=== PATIENT | female | born 1990 | race Caucasian/White ===

== ENCOUNTER → 2017-05-19 08:40 | Outpatient (CLI) | payer MEDICAID ==
[2014-02-03 05:59] VITALS: BMI 26.6
[~2017-05-19 08:40] MED LIST: IBUPROFEN600 MG PO; PERCOCET 5-3251 TAB PO
== END | disposition home or self-care (01) ==
LOC: D.RAD 08:30
DX: K22.8 Other specified diseases of esophagus (principal)

== ENCOUNTER 2017-06-21 13:16 | Emergency (ER) | payer MEDICAID ==
[2014-02-03 05:59] VITALS: BMI 26.6
== END 2017-06-21 16:02 | disposition home or self-care (01) ==
LOC: D.ER 13:16
DX: S16.1XXA Strain of muscle, fascia and tendon at neck level, initial encounter (principal); X58.XXXA Exposure to other specified factors, initial encounter; Y93.89 Activity, other specified; Y92.019 Unspecified place in single-family (private) house as the place of occurrence of the external cause; S29.012A Strain of muscle and tendon of back wall of thorax, initial encounter; M62.838 Other muscle spasm; F17.200 Nicotine dependence, unspecified, uncomplicated

== ENCOUNTER 2018-07-14 21:52 | Inpatient (IN) | payer MEDICAID ==
[~2018-07-14] VITALS: Ht 160 cm; Wt 69.9 kg
[2018-07-14] MEDS ORDERED: BUPRENORPHINE HC8 MG SL (23:53)
[2018-07-14 23:54] VITALS: BP 121/78; Ht 160 cm; Wt 69.9 kg
[2018-07-14 23:54] LABS: HEMATOCRIT 38.7 % (36.0-48.0); HEMOGLOBIN 13.3 g/dL (12-16); MCH 31.9 pg (26.0-34.0); MCHC 34.4 g/dL (31.0-37.0); MCV 92.8 fL (80.0-100.0); MEAN PLATELET VOLUME 11.8 fL (7.4-10.4); RBC 4.17 10x6/uL (4.00-5.40); RDW 12.6 % (11.5-14.5); WBC 9.7 10x3/uL (4.8-10.8)
--- NOTE | 2018-07-15 19:15 | NUR ---
REPORT GIVEN TO 7 P SHIFT.
[2018-07-15 19:36] VITALS: BP 117/68
--- NOTE | 2018-07-15 20:50 | NUR ---
PT READY TO VOID, FF, ML, 2/2, MOD BLEEDING WITH NO CLOTS, PERINEAL SWELLING, PT INST ON AND VERBALIZES UNDERSTANDING OF WALKING TO BR, PT UP TO SIDE OF BED, PT DENIES ANY DIZZYNESS OR LIGHTHEADEDNESS, PT AMB TO BR WITH THIS NURSE AND FOB, GAIT STEADY, PT VOIDED LARGE AMOUNT WITH NO DIFFICULTY, PT INST ON AND DEMONSTRATED ANDRÉS CARE PER SELF, FRESH ICE PACK AND ANDRÉS PANTIES PLACED, CLEAN GOWN ON, WILL TRANSFER PT TO ROOM 1275
--- NOTE | 2018-07-15 21:10 | NUR ---
PT TRANSFERRED TO ROOM 1273 VIA AMB WITH ALL BELONGINGS, PT ORIENTED TO ROOM, BED IN LOW POSITION, SIDE RAILS X 2, CALL LIGHT IN REACH, FOB AND FAMILY AT BEDSIDE
--- NOTE | 2018-07-15 21:14 | NUR ---
ADM 2100 MEDS PER MD ORDERS, SEE EMAR
--- NOTE | 2018-07-15 21:40 | NUR ---
PT SITTING ON SIDE OF BED BABY, DENIES NEEDS AT THIS TIME, FOB AT BEDSIDE
--- NOTE | 2018-07-15 22:20 | NUR ---
PT CONTINUES BABY, LANOLIN CREAM PROVIDED, DENIES FURTHER NEEDS OR PAIN AT THIS TIME, FOB AT BEDSIDE
--- NOTE | 2018-07-15 23:00 | NUR ---
PT UP IN BR, ASSISTED PT WITH ANDRÉS CARE, PANTIES, ANDRÉS PAD AND CLEAN GOWN, PT AMB WITH BABY IN OPEN CRIB CART AND FOB TO NSY, GAIT STEADY, PT BACK TO ROOM
--- NOTE | 2018-07-16 00:40 | NUR ---
PT RESTING WITH EYES CLOSED, RESP QUIET, NO DISTRESS NOTED, LEFT UNDISTURBED AT THIS TIME, FOB ASLEEP ON COUCH
--- NOTE | 2018-07-16 01:30 | NUR ---
REPORT TO JAMSHID BOWERS RN
--- NOTE | 2018-07-16 01:49 | NUR ---
INFANT TRANSFERRED TO ROOM WITH MOTHER. ID BANDS MATCHED. MOTHER LYING IN BED WITH EYES CLOSED. EASILY AROUSED. TYLENOL 650 MG AND MOTRIN 800 MG ADMINISTERED PO. NEW ICE PACK GIVEN TO PATIENT. PATIENT DENIES ANY OTHER NEEDS AT THIS TIME. BED IN LOWEST POSITION, SIDE RAILS UP X 2, C/L AND WATER WITHIN REACH.
--- NOTE | 2018-07-16 02:44 | NUR ---
PATIENT SITTING UP IN BED INFANT. PATIENT DENIES ANT NEEDS OR CONCERNS. NO SIGNS OF DISTRESS NOTED.
--- NOTE | 2018-07-16 03:37 | NUR ---
PATIENT TO NURSES DESK. STATES SHE HAS A BLISTER ON L NIPPLE. STATES SHE HAS BEEN USING NIPPLE SHIELD. INSTRUCTED PATIENT ON MAKING SURE NIPPLE SHILED IS POSITIONED CORRECTLY ON BREAST TO MAKE SURE INFANT IS GETTING A PROPER LATCH.
--- NOTE | 2018-07-16 05:01 | NUR ---
PATIENT LYING IN BED WITH EYES CLOSED. NO SIGNS OF DISTRESS NOTED. RESPIRATIONS AT EASE.
--- NOTE | 2018-07-16 06:02 | NUR ---
PATIENT LYING QUIETLY IN BED WITH EYES CLOSED. EASILY AROUSED. TYLENOL 650 MG ADMINISTERED PO AT THIS TIME. ICE PACK PROVIDED TO PATIENT. PATIENT DENIES ANY NEEDS OR CONCERNS. NO SIGNS OF DISTRESS NOTED.
[2018-07-16 06:51] LABS: BASOPHILS 0.2 % (0-2); EOSINOPHILS 0.6 % (0-7); HEMATOCRIT 34.5 % (36.0-48.0); HEMOGLOBIN 11.5 g/dL (12-16); IMMATURE GRANULOCYTES 0.2 % (0-5); LYMPHOCYTES 18.6 % (15-50); MCH 31.2 pg (26.0-34.0); MCHC 33.3 g/dL (31.0-37.0); MCV 93.5 fL (80.0-100.0); MEAN PLATELET VOLUME 12.1 fL (7.4-10.4); MONOCYTES 7.4 % (2-11); PLATELET COUNT 140 10x3/uL (130-400); RBC 3.69 10x6/uL (4.00-5.40); RDW 12.8 % (11.5-14.5); WBC 11.4 10x3/uL (4.8-10.8)
--- NOTE | 2018-07-16 08:00 | NUR ---
AM ASSESSMENT COMPLETED CHARTED ON FLOWSHEET, RATES PAIN AT 0/10 AND DENIES CONCERNS. FUNDUS FIRM AT U/U WITH SCANT BLEEDING NOTED. SALINE LOCK TO RIGHT HAND PATENT AND FLUSHES EASILY WITH 5ML NS. IN CRIB AT BEDSIDE AND FAMILY PRESENT. SIDE RAILS UP X 2 WITH PHONE AND CALL LIGHT IN REACH.
--- NOTE | 2018-07-16 08:51 | NUR ---
Aditi Eden 07/16/18 S: Patient states she delivered yesterday afternoon at 4:37. She has been using a nipple shield because won't latch. latched good for the first time at 7 something this morning. Showed CLC her left nipples has a dark color blister at the tip, the size of a small pea. Dr. Vargas told her it looks like a blister and it may be because of the nipple shield. States it does hurt if it's touched and was bigger this morning and it has went down some since. Unsure how she got this but states she his scared to nurse on that breast for the next feeding because she knows it will hurt. She is unsure if she has been using the nipple shield correctly because no one showed her how to use it. She prefers not to use it because it's hard getting baby to latch with it. O: Patient sitting up In bed, FOB sleeping on sofa, and in nursery. Asked how are things going with . Observed patient left nipple, has a dark color blister, almost sore like scab at the tip, the size of a small pea.Informed I can't diagnose because out of my scoop of practice. Asked if Dr. Vargas came in room to see her and if she informed her of her concern. Observed right nipple, tip of nipple is red. Asked patient to show me how she has been using the nipple shield. Correctly showed patient how to apply shield and also provided tips on how to hold breast to get to latch without nipple shield. Offered to show how to hand express the left breast to help with stimulation for milk production. I'll call Dr. Vargas and speak with her regarding patient concern. Encouraged patient to place skin to skin to help with baby led . This can help with initiation his self. Making sure infant latch is correct with every feeding will help prevent sore nipples. Educated patients on the benefits of skin to skin, breastmilk composition, positions, how to verify infant if latched is correctly to the breast, position, the importance of practicing responsive feeding, and encouraged to ask for help as needed during hospital visit with . Breastfeed does take time practice, and patience in the beginning. It is normal for infant to want to nurse often 8-12 times in 24 hours to help with establishing your milk supply. I'll come back in room for next feeding to help with latching. A: Patient concern for sore nipples. P: CLC will come back in room to help with latching for next feeding and will call Dr. Vargas regarding patient concern for blister like sore on her left nipple. Yang Randhawa, CLC
--- NOTE | 2018-07-16 09:45 | NUR ---
PT DENIES WANTING MOTRIN AT THIS TIME STATING THAT SHE IS NOT IN ANY PAIN. ASK IF COULD BE HELD NOW AND GIVEN PRIOR TO , REASSURED HER THAT WOULD BE OK, REQUEST THAT SHE CALL ABOUT 30MINUTES BEFORE TIME TO FEED.
--- NOTE | 2018-07-16 10:25 | NUR ---
Aditi Eden Radha 07/16/18 Informed patient I did call Dr. Vargas but she has to call me back due to her working in clinic at this time. It's possible I won't be in the hospital when she returns my call. I informed nursery staff about your concern with your nipples to have a plan created for and to have her assets your nipple. Lanette from nursery in room with CLC to asset patient left nipple. Lanette states it looks like a blood blister. CLC observed size has decreased but dark color and scab remain. Plan was created to use warm compress and to hand express on the left breast. CLC show patient how to hand express while in room . She needs to do this after nursing on the right breast. She may also take a warm shower and hand express. The stimulation will help with establishing her milk supply. You can continue to hand express until it is comfortable for you to latch on the breast. Patient in room nursing infant on right breast without nipple shield. States she started feeding at 10;01-10:15, then 10:15 to current. Observed latch. Infant mouth is 90 degrees. Showed how to readjust infant latch. was latched on the right breast at 10:40 without a nipple shield mouth 140 degrees, sucking in a rocking motion, round checks. Infant checks and ears could be seen moving when sucking. Clinch sucking and swallowing. Both mother and infant appear content with feeding. Patient expresses no concern with pain or discomfort with feeding. Encouraged to continue to verify infant latch is correct for every feeding, not to use the nipple shield, and to ask for help as needed. Yang Randhawa, CLC
--- NOTE | 2018-07-16 12:43 | NUR ---
MOTRIN 800MG GIVEN SCANNED TO EMAR. PT EATING LUNCH AT THIS TIME WITH FAMILY/FRIENDS AT BEDSIDE.
--- NOTE | 2018-07-16 15:12 | NUR ---
LARGE CUP OF ICE PER REQUEST, DENIES PAIN OR DISCOMFORT. NO OTHER NEEDS VOICED. IN CRIB AT BEDSIDE WITH FAMILY PRESENT
--- NOTE | 2018-07-16 18:00 | NUR ---
PT DENIES PAIN OR DISCOMFORT, UP WALKING ABOUT ROOM WITH FAMILY/FRIENDS AT BEDSIDE. SALINE LOCK REMOVED WITH CATH INTACT.
--- NOTE | 2018-07-16 19:33 | NUR ---
PT. EATING FOOD BROUGHT FROM OUTSIDE. AMBULATORY IN ROOM. REQUESTING LINENS CHANGED STATING THAT VISITOR LET SMALL CHILD EAT IN HER BED AND CRUMBS REMAINS. LINENS CHANGED REQUESTED. IN OPEN CRIB AT BEDSIDE SLEEING. INFORMED PT. WOULD RETURN AFTER SHE HAD HAD TIME TO FINISH EATING. PT. AGREEABLE.
[2018-07-16 20:18] VITALS: BP 121/72
--- NOTE | 2018-07-16 20:18 | NUR ---
PT. SITTING ON SIDE OF BED WORKING ON LAPTOP COMPUTER. VITAL SIGNS OBTAINED. FUNDUS FIRM AND MIDLINE AT U/2. PT. REPORTS THAT LOCHIA SCANT TO MOD. BREATH SOUNDS CLEAR AND BOWEL SOUNDS AUDIBLE. DENIES ANY PAIN AT THIS TIME. STATES SHE ONLY HAS CRAMPING WITH . DISCUSSED WITH PT. ABOUT ROUTINE MEDICATIONS AND PT. DESIRES TO LET NURSE KNOW IF ANY MEDS NEEDED. STATES SHE WILL CALL FOR MOTRIN BEFORE NEXT . PT. STATES SHE IS VOIDING WITHOUT DIFFICULTY. VISITORS IN ROOM.
--- NOTE | 2018-07-16 21:30 | NUR ---
INTO PT. ROOM AND INFORMED PT. THAT MD ORDERED SITZ BATH IF SHE WAS READY FOR IT. PT. STATES THAT SHE IS NOT UNCOMFORTABLE OR ANY PAIN AND SHE DECLINES AT THIS TIME. STATES AFTER SHE WILL TAKE A SHOWER BUT OTHERWISE SHE IS FINE. REQUESTING MOTRIN PRIOR TO .
--- NOTE | 2018-07-16 21:36 | NUR ---
PT. REQUESTING MOTRIN WHILE . DENIES ANY PAIN AT THIS TIME. NBN IN ROOM ASSISTING WITH .
--- NOTE | 2018-07-16 23:00 | NUR ---
PT. STANDING BESIDE OPEN CRIB HOLDING ROCKING AND SINGING TO INFANT. DENIES ANY NEEDS AND DENIES PAIN. LIGHTS IN ROOM DIMMED.
--- NOTE | 2018-07-16 23:38 | NUR ---
PT. LYING ON LT. SIDE AND AWAKENS TO NBN NURSE IN ROOM. INFANT ASLEEP IN OPEN CRIB. PT. DENIES ANY NEEDS.
--- NOTE | 2018-07-17 01:28 | NUR ---
PT. LYING ON RT SIDE LOOKING AT PHONE. INFANT IN OPEN CRIB AT BEDSIDE. FOB SLEEPING ON SOFA. INQUIRED IF PT. WANTED ANYTHING TO EAT OR DRINK. PT. STATES THAT SHE STILL HAS PLENTY TO DRINK AND DOES WANT TO EAT. INQUIRED IF PT. HAD HAD BOWEL MOVEMENT AND PT. REPORTS THAT SHE HAS NOT BUT DOES FEEL GAS. INQUIRED IF PT. DESIRED MILK OF MAGNESIA ORDERED AND PT. DECLINED STATING "I FEEL THAT IT WILL HAPPEN." DENIES ANY NEEDS AT THIS TIME.
--- NOTE | 2018-07-17 03:05 | NUR ---
PT. STANDING BESIDE CRIB CHANGING DIAPER. CRYING LOUDLY.
--- NOTE | 2018-07-17 04:27 | NUR ---
SITTING ON SIDE OF BED INFANT. DENIES ANY NEEDS AT THIS TIME. OFFERED WATER OR JUICE BUT PT. DECLINED.
--- NOTE | 2018-07-17 08:00 | NUR ---
ROUNDS MADE FOR SHIFT ASSESSMENT. PT CURRENTLY . THIS RN WILL ALLOW TIME FOR NURSING AND THEN RETURN FOR ASSESSMENT.
[2018-07-17 08:28] VITALS: BP 129/79
[2018-07-17] MEDS ORDERED: IBUPROFEN800 MG PO (08:56)
--- NOTE | 2018-07-17 09:30 | NUR ---
DR HERNANDEZ ON UNIT AND TO PT'S ROOM TO SEE PT.
--- NOTE | 2018-07-17 10:32 | NUR ---
ROUNDS MADE. PT CURRENTLY SITTING ON SIDE OF BED VISITING W/FAMILY. DENIES PAIN OR NEEDS AT THIS TIME. MMR INFORMATION SHEET PROVIDED. PT AGREEABLE TO RECEIVING MMR BEFORE DISCHARGE. NO QUESTIONS AT THIS TIME.
--- NOTE | 2018-07-17 11:30 | NUR ---
ROUNDS MADE. PT CONTINUES TO ATTEMPT NURSING . DENIES NEEDS AT PRESENT. DENEIS PAIN.
--- NOTE | 2018-07-17 12:14 | NUR ---
PT RINGS CALL LIGHT TO REQUEST MOTRIN AT THIS TIME FOR ABD CRAMPING. SEE EMAR FOR PAIN RATING. DENIES FURTHER NEEDS AT THIS TIME. CONTINUES TO ATTEMPT TO NURSE INFANT.
--- NOTE | 2018-07-17 12:54 | NUR ---
DR BOWERS TO ROOM TO SEE PATIENT.
--- NOTE | 2018-07-17 13:30 | NUR ---
ROUNDS MADE. PT SITTING ON SIDE OF BED ATTEMPTING TO GET INFANT LATCHED. DENIES NEEDS NEEDS AT PRESENT. PAIN ASSESSED. PT DENIES PAIN AT PRESENT.
--- NOTE | 2018-07-17 14:00 | NUR ---
THIS RN TO BEDSIDE FOR DISCHARGE TEACHING TO INCLUDE D/C TEACHING FOR VAG DELIVERY, PP HEMMORHAGE,PP DEPRESSION, OB EMERGENCIES, MEDICATION TEACHING, FOLLOW APPT WITH DR DR HERNANDEZ IN 2WKS AND 6WKS. PRESCRIPTION FOR MOTRIN 8OO MG PROVIDED.PT DENIES NEED W/ASSISTANCE W/GETTING IT FILLED. PT TO BE DISCHARGED TO ROOMING. PT VERBALZIES UNDERSTANDING AND IS AGREEABLE. DENIES QUESTIONS AT THIS TIME. ROOMING IN AGREEMENT PAPERS PROVIDED FOR PT TO SIGN.TEACHING PROVIDED. PT DISCHARGED AT THIS TIME IN STABLE CONDITION. PT TO REMAIN IN [id number] UNTIL IS DISCHARGED.
--- NOTE | 2018-07-19 13:47 | MORECARE ---
CASE MANAGEMENT DISCHARGE SUMMARY PATIENT: KEYA SHANKS UNIT: [id number] ADM DATE: 07/14/18 AGE: 27 : 90 SEX: F ROOM/BED: D.1273 AUTHOR: SOFIE MAYO PHYSICIAN: REFERRING PHYSICIAN: GARETH HERNANDEZ MD DATE OF SERVICE: 07/19/18 Discharge Plan Patient Name: KEYA SHANKS Facility: [facility]:[place] : 1990 Planned Disposition: Home Anticipated Discharge Date: 07/17/18 Discharge Date: 07/17/2018 Expected LOS: 3 Initial Reviewer: [email or web address] Initial Review Date: 07/14/2018 Generated: 07/19/18 2:47 pm Patient Name: KEYA SHANKS Page [id number] at 1347 All edits/amendments must be made on the electronic document DICTATION DATE: 07/19/18 1347 PRINTED CIRCUIT BOARD PANELS DEVELOPER: VITO 07/19/18 1347 RPT#: [id number] DC DATE:07/17/18 STATUS: DIS IN [facility] [address] [place] [address] END OF REPORT
--- NOTE | 2018-07-19 13:58 | MORECARE ---
CASE MANAGEMENT DISCHARGE SUMMARY PATIENT: KEYA SHANKS UNIT: [id number] ADM DATE: 07/14/18 AGE: 27 : 89 SEX: F ROOM/BED: D.1273 AUTHOR: SOFIE MAYO PHYSICIAN: REFERRING PHYSICIAN: GARETH HERNANDEZ MD DATE OF SERVICE: 07/19/18 Discharge Plan Patient Name: KEYA SHANKS Facility: [facility]:[place] : 1990 Planned Disposition: Home Anticipated Discharge Date: 07/17/18 Discharge Date: 07/17/2018 Expected LOS: 3 Initial Reviewer: [email or web address] Initial Review Date: 07/14/2018 Generated: 07/19/18 2:58 pm Patient Name: KEYA SHANKS Page [id number] at 1358 All edits/amendments must be made on the electronic document DICTATION DATE: 07/19/18 1357 AIRPORT REPRESENTATIVE: VITO 07/19/18 1357 RPT#: [id number] DC DATE:07/17/18 STATUS: DIS IN [facility] [address] [place] [address] END OF REPORT
== END 2018-07-17 15:16 | disposition home or self-care (01) | DRG 807 ==
LOC: D.LD 21:52
PROVIDERS: ADMIT Obstetrics & Gynecology; ATTEND Obstetrics & Gynecology
PROC: 3E033VJ Introduction of Other Hormone into Peripheral Vein, Percutaneous Approach (ICD-10-PCS; 2018-07-14)
PROC: 10E0XZZ Delivery of Products of Conception, External Approach (ICD-10-PCS; principal; 2018-07-15)
PROC: 0HQ9XZZ Repair Perineum Skin, External Approach (ICD-10-PCS; 2018-07-15)
PROC: 10907ZC Drainage of Amniotic Fluid, Therapeutic from Products of Conception, Via Natural or Artificial Opening (ICD-10-PCS; 2018-07-15)
DX: O99.12 Other diseases of the blood and blood-forming organs and certain disorders involving the immune mechanism complicating childbirth (principal); Z37.0 Single live birth; D69.6 Thrombocytopenia, unspecified; Z3A.39 39 weeks gestation of pregnancy; O71.82 Other specified trauma to perineum and vulva; O92.29 Other disorders of breast associated with pregnancy and the puerperium